=== PATIENT | male | born 1945 | race Caucasian/White ===

== ENCOUNTER → 2018-01-02 | Outpatient (CLI) | payer OTHER, MEDICARE ==
[~2018-01-02] VITALS: Ht 157.5 cm; Wt 53.0 kg
[~2018-01-02] MED LIST: ALEN70TA48 PO; AMLO-511 PO; CALC-1038 PO; CYAN1TAB44 PO; FAMO20 PO; FLUT1BLS3 IH; IPRA3AMP4 NEB; LISI-662 PO; MULT1TAB70 PO; NICO-800 TD; PARO40TA PO; PRED10 PO; TIOT185 IH
[2018-01-02 12:46] VITALS: BP 123/58
== END | disposition home or self-care (01) ==
LOC: SRCNTR 12:21
PROVIDERS: ATTEND Internal Medicine
DX: J43.9 Emphysema, unspecified (principal); K26.5 Chronic or unspecified duodenal ulcer with perforation; Z99.81 Dependence on supplemental oxygen; Z87.891 Personal history of nicotine dependence
CPT/HCPCS: G0463